=== PATIENT | female | born 1985 | race Caucasian/White ===

== ENCOUNTER 2016-07-26 03:35 | Emergency (ER) | payer OTHER ==
[~2016-07-26] VITALS: Ht 165.1 cm; Wt 68.0 kg
[2016-07-26 03:43] VITALS: BP 142/82
--- NOTE | 2016-07-26 03:44 | ED UPPER/LOWER EXTREMITY COMPL ---
History of Present Illness General Chief Complaint: Hand or Wrist Injury Stated Complaint: "MY HAND IS INFECTED" Source: patient Exam Limitations: no limitations Vital Signs & Intake/Output Vital Signs & Intake/Output Vital Signs Date Time Temp Pulse Resp B/P Pulse O2 O2 Flow FiO2 Ox Delivery Rate 07/26 0347 Room Air 07/26 034 98.0 120 20 142/82 95 Room Air Allergies Coded Allergies: Sulfa (Sulfonamide Antibiotics) (Severe, HIVES 07/26/16) Reconcile Medications Buprenorphine HCl/Naloxone HCl (Suboxone 8 MG-2 MG Sl Film) 8 MG-2 MG FILM 2 STR SL DAILY opioid dependence take first dose when in acute withdrawal....[id number] Cephalexin (Keflex) 500 MG CAPSULE 1 CAP PO 4 TIMES/DAY infection x 10 days. Clonidine HCl 0.1 MG TABLET 1 TAB PO BID PRN withdrawal symptoms two tabs Doxycycline Hyclate 100 MG TABLET 1 TAB PO BID infection x 10 days... return to the ED if not improving within 24 hours Triage Nurses Notes Reviewed? yes Onset: Gradual Duration: day(s):, getting worse Timing: recent history Severity: moderate Pain/Injury Location: Right: Hand. Method of Injury: "I've been injecting." Modifying Factors: Worsens With: movement. Associated Symptoms: swelling, redness HPI: 30 yo woman h/o iv drug abuse, presents with right hand swelling, redness, and pain. She notes that she has recently been injecting into her right hand. She states she has an allergy to sulfa (hives). She is adamant that she does not wish to be admitted, but states she will return later for a wound check and if her symptoms worsen. She has no fever, chills, elbow or axillay pain/swelling. She is otherwise well. Past History Travel History Traveled to [place] past 21 day No Medical History Any Pertinent Medical History? see below for history Other Medical Hx: heroin addiction Surgical History Surgical History: none Psychosocial History What is your primary language Palau[place] Family History Hx Contributory? No Review of Systems Review of Systems Constitutional: Reports: no symptoms. EENTM: Reports: no symptoms. Respiratory: Reports: no symptoms. Cardiovascular: Reports: no symptoms. Gastrointestinal/Abdominal: Reports: no symptoms. Genitourinary: Reports: no symptoms. Musculoskeletal: Reports: no symptoms. Skin: Reports: no symptoms. Neurological/Psychological: Reports: no symptoms. Hematologic/Endocrine: Reports: no symptoms. Immunological: Reports: no symptoms. All Other Systems: Reviewed and Negative Physical Exam Physical Exam General Appearance: well developed/nourished, mild distress Head: atraumatic Eyes: Bilateral: normal appearance. Ears, Nose, Throat: normal pharynx, normal ENT inspection, hearing grossly normal Neck: normal inspection, supple Cardiovascular/Respiratory: regular rate/rhythm Back: normal inspection Elbow Right: no right elbow lymphadenopathy Hand Right: swelling, on dorsum of right hand, there is redness, tenderness, swelling with area fluctuance. Right hand is also diffusely warm, tender, swollen. Skin: intact, normal color, warm/dry Lymphatic: no anterior cervical rodríguez Progress Differential Diagnosis: abscess vs cellulitis Plan of Care: abscess drained... see below..... pt signed ama paperwork. Departure Departure Disposition: LEFT AGAINST MEDICAL ADVICE Condition: Stable Clinical Impression Primary Impression: Abscess Secondary Impressions: Opioid dependence Referrals: LAURA ELDRIDGE APRN (PCP/Family) Departure Forms: Customer Survey General Discharge Information Prescriptions: Current Visit Scripts Doxycycline Hyclate 1 TAB PO BID #20 TAB x 10 days... return to the ED if not improving within 24 hours Cephalexin (Keflex) 1 CAP PO 4 TIMES/DAY #40 CAP x 10 days. Clonidine HCl 1 TAB PO BID PRN withdrawal symptoms #2 TAB two tabs Buprenorphine HCl/Naloxone HCl (Suboxone 8 MG-2 MG Sl Film) 2 STR SL DAILY #30 STR take first dose when in acute withdrawal....[id number] Comments 07/26/16, 4:14am.... discussed at length with patient. I advised admission for iv abx, and explored for her risks of NOT being admitted, including , severe illness. She expresses understanding at these risks and wishes to go home anyway. I gave her a rx for doxy/keflex x 10 days as well as a bridge rx of suboxone, with instructions about how to take it. She expressed familiarity with suboxone. She is sober and is capable of making decisions for herself. I have referred her to outpatient detox. Procedures Incision and Drainage Site: right hand Blade Size: 11 I & D Procedure: Yes: betadine prep, sterile drapes applied, sterile dressing applied, wick placed. Progress: 4-5 cc's of pus expressed. wound packed. pt wishes to leave AMA and has signed AMA form. She will return if sx worsen and for wound check.
[2016-07-26] MEDS ORDERED: SUBOXONE 8 MG-1 EACH SL (04:12)
[2016-07-26] MEDS ORDERED: DOXYCYCLINE HY100 M4 PO (04:12)
[2016-07-26] MEDS ORDERED: KEFLEX500 M1 PO (04:12)
[2016-07-26] MEDS ORDERED: CLONIDINE HCL0.1 MG PO (04:12)
== END 2016-07-26 04:19 | disposition left against medical advice (07) ==
LOC: ERH 03:35
DX: L02.511 Cutaneous abscess of right hand (principal); F11.20 Opioid dependence, uncomplicated